=== PATIENT | female | born 1985 | race Caucasian/White ===

== ENCOUNTER 2019-12-29 14:49 | Emergency (ER) | payer MEDICAID ==
[~2019-12-29] VITALS: Ht 160 cm; Wt 98.4 kg
[2019-12-29 15:06] VITALS: BP 117/76
== END 2019-12-29 16:07 | disposition home or self-care (01) ==
LOC: ER 14:50
DX: S62.636A Displaced fracture of distal phalanx of right little finger, initial encounter for closed fracture (principal); Z88.0 Allergy status to penicillin; Z88.1 Allergy status to other antibiotic agents; W22.8XXA Striking against or struck by other objects, initial encounter; Y93.89 Activity, other specified; Y92.89 Other specified places as the place of occurrence of the external cause; Y99.9 Unspecified external cause status
CPT/HCPCS: 73660; 99283